=== PATIENT | male | born 1950 | race Caucasian/White ===

== ENCOUNTER → 2023-11-23 08:29 | Outpatient (REF) | payer MEDICARE, OTHER, SELFPAY ==
[2023-11-23 10:37] LABS: ALT (SGPT) 20 U/L (0-50); AST (SGOT) 21 U/L (17-59); Alkaline Phosphatase 102 U/L (38-126); Blood Urea Nitrogen 20 mg/dl (9-20); Calcium 9.6 mg/dl (8.4-10.2); Carbon Dioxide 25 mmol/L (22-30); Chloride 103 mmol/L (98-107); Glucose 154 mg/dl (70-99); HDL Cholesterol 48 mg/dl; LDL Cholesterol, Calculated 65 mg/dl; Potassium 4.6 mmol/L (3.5-5.1); Sodium 138 mmol/L (135-145); Total Bilirubin 0.6 mg/dl (0.2-1.3); Total Cholesterol 138 mg/dl (50-199); Total Protein 6.6 g/dl (6.3-8.2); Triglyceride 125 mg/dl (10-149); Very Low Density Lipoprotein 25 mg/dl (0-30); eGFR > 60.00
[2023-11-23 10:56] LABS: Glycohemoglobin (HgbA1c) 7.4 % (4.0-5.6)
[2023-11-23 12:01] LABS: PSA, Total - Screen 1.78 ng/ml (0.0-4.0)
[2023-11-23 15:16] LABS: Microalbumin, Random Urine 43.2 mg/dl (0.6-1.7); Microalbumin/creatinine Ratio 370.8 mg/g
== END ==
LOC: REG 08:29
PROVIDERS: ATTENDING PHYSICIAN Family Medicine
DX: Z12.5 Encounter for screening for malignant neoplasm of prostate (principal); E11.42 Type 2 diabetes mellitus with diabetic polyneuropathy; E78.2 Mixed hyperlipidemia
CPT/HCPCS: 36415; 80053; 80061; 82043; 82570; 83036; G0103

== ENCOUNTER → 2024-03-14 10:11 | Outpatient (REF) | payer MEDICARE, OTHER, SELFPAY ==
[2024-03-14 10:49] LABS: % Basophils 0.9 % (0-2); % Eosinophils 2.4 % (0-6); % Immature Granulocytes 0.2 % (0-0.5); % Lymphocytes 20.2 % (20.5-51.1); % Monocytes 6.7 % (1.7-9.3); % Neutrophils 69.6 % (42.2-75.2); Absolute Basophils 0.1 10^3/uL (0-0.2); Absolute Eosinophils 0.2 10^3/uL (0-0.7); Absolute Lymphocytes 1.6 10^3/uL (1.2-3.4); Absolute Monocytes 0.5 10^3/uL (0.1-0.6); Absolute Neutrophils 5.6 10^3/uL (1.4-6.5); Hematocrit 49.8 % (39.0-52.0); Hemoglobin 16.2 g/dL (13.0-18.0); Mean Corp Hgb Conc. 32.5 g/dL (33.0-37.0); Mean Corpuscular Hgb 29.6 pg (27.0-31.0); Mean Corpuscular Volume 90.9 fL (80.0-94.0); Mean Platelet Volume 10.6 fL (7.4-10.4); Nucleated Red Blood Cells % 0 % (-); Platelet Count 232 10^3/uL (130-400); Red Blood Cell Count 5.48 10^6/uL (4.70-6.10); Red Cell Dist. Width 13.6 % (11.5-14.5); White Blood Cell Count 8.1 10^3/uL (4.8-10.8)
[2024-03-14 11:19] LABS: ALT (SGPT) 26 U/L (0-50); AST (SGOT) 27 U/L (17-59); Albumin 4.4 g/dl (3.5-5.0); Alkaline Phosphatase 87 U/L (38-126); Blood Urea Nitrogen 17 mg/dl (9-20); Calcium 9.9 mg/dl (8.4-10.2); Carbon Dioxide 25 mmol/L (22-30); Chloride 102 mmol/L (98-107); Creatine Phosphokinase 52 U/L (55-170); Glucose 154 mg/dl (70-99); Potassium 4.7 mmol/L (3.5-5.1); Sodium 140 mmol/L (135-145); Total Bilirubin 0.5 mg/dl (0.2-1.3); Total Protein 7.3 g/dl (6.3-8.2); eGFR > 60.00
[2024-03-14 12:46] LABS: Erythrocyte Sed Rate 15 mm/hour (0-20)
== END ==
LOC: RAD 10:11
PROVIDERS: ATTENDING PHYSICIAN Family Medicine
DX: R06.09 Other forms of dyspnea (principal); M79.10 Myalgia, unspecified site
CPT/HCPCS: 36415; 71046; 80053; 82550; 85025; 85652; 86140

== ENCOUNTER → 2024-03-18 10:58 | Outpatient (REF) | payer MEDICARE, OTHER, SELFPAY | LOC: RAD 10:58 | PROVIDERS: ATTENDING PHYSICIAN Family Medicine | DX: M79.605 Pain in left leg (principal); M79.604 Pain in right leg; R60.0 Localized edema | CPT/HCPCS: 93970 ==

== ENCOUNTER → 2024-05-16 07:13 | Outpatient (REF) | payer MEDICARE, OTHER, SELFPAY ==
--- NOTE | 2024-05-16 08:16 | CARDSERVLU ---
Echocardiogram with Lumason completed after protocol screening completed. Allergies verified.
Patent IV site: ___Rt hand_
IV site flushed with 0.9% NaCl pre and post administration.
Diluted bolus method utilized to enhance visualization of ventricular peterson.
Total volume given: __3.5__ mL
Patient tolerated all procedures well without complications.
#22 betty placed rt hand. Lumason given. INT d/c'd. pressure held. No bleeding noted.
== END ==
LOC: RCS 07:13
PROVIDERS: ATTENDING PHYSICIAN Nuclear Medicine Nuclear Cardiology; FAMILY PHYSICIAN Family Medicine
DX: Z95.1 Presence of aortocoronary bypass graft (principal); I25.10 Atherosclerotic heart disease of native coronary artery without angina pectoris
CPT/HCPCS: 93306; Q9950

== ENCOUNTER 2024-07-20 06:13 | Day surgery (SDC) | payer MEDICARE, OTHER, SELFPAY ==
[2024-07-20 07:16] VITALS: BMI 50.9
[2024-07-20 07:25] VITALS: BP 160/62
[2024-07-20 07:37] VITALS: BMI 50.9
[2024-07-20 07:37] LABS: Glucose - Point of Care 129 mg/dl (70-99)
[2024-07-20] MEDS: CYCLOGYL 1% EYE DROPS 1 DROP OPHTH (07:44)
[2024-07-20] MEDS: PRED FORTE 1% EYE DROPS 1 DROP OPHTH (07:44)
[2024-07-20] MEDS: ALCAINE 0.5% EYE DROPS 1 DROP OPHTH (07:44)
[2024-07-20] MEDS: POLYTRIM OPHTHALMIC SOLUTION 1 DROP OPHTH (07:44)
[2024-07-20] MEDS: NEO-SYNEPHRINE 2.5% OPH SOL. 1 DROP OPHTH (07:45)
[2024-07-20] MEDS: ACUVAIL 10 DROPS OPHTH (07:45)
[2024-07-20] MEDS: MYDRIACYL 1 DROP OPHTH (07:45)
[2024-07-20] MEDS: NORMOSOL-R/PLASMALYTE-A 1000 IV (07:46)
[2024-07-20] MEDS: AKTEN OPHTHALMIC GEL 1 ML OPHTH (07:46)
[2024-07-20 09:17] VITALS: BP 144/73
== END 2024-07-20 14:57 | disposition home or self-care (01) ==
LOC: SDS 06:13
PROVIDERS: ATTENDING PHYSICIAN Ophthalmology
DX: H25.12 Age-related nuclear cataract, left eye (principal)
CPT/HCPCS: 66984; 82962; V2632

== ENCOUNTER 2024-08-03 06:23 | Day surgery (SDC) | payer MEDICARE, OTHER, SELFPAY ==
[2024-08-03 07:01] VITALS: BP 174/76
[2024-08-03 07:09] LABS: Glucose - Point of Care 143 mg/dl (70-99)
[2024-08-03 07:14] VITALS: BMI 50.9
[2024-08-03] MEDS: POLYTRIM OPHTHALMIC SOLUTION 1 DROP OPHTH (07:15)
[2024-08-03] MEDS: ALCAINE 0.5% EYE DROPS 1 DROP OPHTH (07:15)
[2024-08-03] MEDS: PRED FORTE 1% EYE DROPS 1 DROP OPHTH (07:15)
[2024-08-03] MEDS: AKTEN OPHTHALMIC GEL 1 ML OPHTH (07:16)
[2024-08-03] MEDS: ACUVAIL 10 DROPS OPHTH (07:16)
[2024-08-03] MEDS: MYDRIACYL 1 DROP OPHTH (07:16)
[2024-08-03] MEDS: NEO-SYNEPHRINE 2.5% OPH SOL. 1 DROP OPHTH (07:16)
[2024-08-03] MEDS: CYCLOGYL 1% EYE DROPS 1 DROP OPHTH (07:16)
[2024-08-03 08:30] VITALS: BP 140/53
== END 2024-08-03 08:50 | disposition home or self-care (01) ==
LOC: SDS 06:23
PROVIDERS: ATTENDING PHYSICIAN Ophthalmology
DX: H25.11 Age-related nuclear cataract, right eye (principal)
CPT/HCPCS: 66984; 82962; V2632

== ENCOUNTER → 2024-12-07 10:34 | Outpatient (REF) | payer MEDICARE, OTHER, SELFPAY ==
[2024-12-07 11:57] LABS: Glycohemoglobin (HgbA1c) 7.6 % (4.0-5.6)
[2024-12-07 12:18] LABS: ALT (SGPT) 17 U/L (0-50); AST (SGOT) 20 U/L (17-59); Albumin 4.4 g/dl (3.5-5.0); Alkaline Phosphatase 108 U/L (38-126); Blood Urea Nitrogen 20 mg/dl (9-20); Calcium 9.9 mg/dl (8.4-10.2); Carbon Dioxide 23 mmol/L (22-30); Chloride 106 mmol/L (98-107); Glucose 171 mg/dl (70-99); HDL Cholesterol 46 mg/dl; LDL Cholesterol, Calculated 61 mg/dl; Potassium 4.8 mmol/L (3.5-5.1); Sodium 138 mmol/L (135-145); Total Protein 7.5 g/dl (6.3-8.2); Very Low Density Lipoprotein 27 mg/dl (0-30); eGFR > 60.00
[2024-12-07 13:41] LABS: Microalb - Urine Creatinine 120.800 mg/dl
[2024-12-07 13:46] LABS: Microalbumin, Random Urine 18.8 mg/dl (0.6-1.7)
== END ==
LOC: REG 10:34
PROVIDERS: ATTENDING PHYSICIAN Family Medicine
DX: E11.21 Type 2 diabetes mellitus with diabetic nephropathy (principal); E78.2 Mixed hyperlipidemia
CPT/HCPCS: 36415; 80053; 80061; 82043; 82570; 83036

== ENCOUNTER → 2025-03-13 08:21 | Outpatient (REF) | payer MEDICARE, OTHER, SELFPAY ==
[2025-03-13 10:45] LABS: ALT (SGPT) 23 U/L (0-50); AST (SGOT) 23 U/L (17-59); Albumin 4.5 g/dl (3.5-5.0); Alkaline Phosphatase 103 U/L (38-126); Blood Urea Nitrogen 16 mg/dl (9-20); Calcium 9.7 mg/dl (8.4-10.2); Carbon Dioxide 25 mmol/L (22-30); Chloride 103 mmol/L (98-107); Glucose 198 mg/dl (70-99); Glycohemoglobin (HgbA1c) 8.6 % (4.0-5.9); Potassium 4.6 mmol/L (3.5-5.1); Sodium 136 mmol/L (135-145); Total Protein 7.8 g/dl (6.3-8.2); eGFR > 60.00
== END ==
LOC: REG 08:21
PROVIDERS: ATTENDING PHYSICIAN Internal Medicine Cardiovascular Disease; FAMILY PHYSICIAN Family Medicine
DX: E11.21 Type 2 diabetes mellitus with diabetic nephropathy (principal); I48.0 Paroxysmal atrial fibrillation
CPT/HCPCS: 36415; 80053; 83036; 84439; 84443

== ENCOUNTER 2025-04-18 13:50 | Emergency (ER) | payer MEDICARE, OTHER, SELFPAY ==
[2025-04-18 14:00] VITALS: BP 171/88
--- NOTE | 2025-04-18 19:20 | ED.GENMED ---
History of Present Illness
General
Chief Complaint: Fall
Source: patient
Exam Limitations: none
Time Seen by Provider: 04/18/25 15:58
Nursing documentation reviewed up to this point in time: agreed with
History of Present Illness
History of Present Illness:
Patient is a 75-year-old male with history atrial fibrillation on Xarelto, CAD, hypertension with pacemaker who presents to the emergency department after mechanical fall. Patient states he slipped at the bottom of his driveway falling backwards
and striking his head. Patient states that when he was attempting to get up he then slipped and fell forward striking his face on the ice. He denies any LOC. 911 was contacted for assistance up and transportation to the emergency department given
anticoagulation.
He reports a dull headache as well as pain in his neck, more on the right side. He denies any nausea or episodes of vomiting. No dizziness, lightheadedness, visual changes, or changes in mental status. He denies any pain in his back,
numbness/tingling or weakness in extremities. He denies any pain in his extremities.
Additionally�he does mention that he has had a pain in the left side of his chest which has been intermittent since the fall today. He denies any exertional or pleuritic component to symptoms. No associated shortness of breath. He also reports
somewhat chronic cough over the past month without associated fever.
Past History
Past History
ED Past Medical History: Arrthythmia (Atrial fib/flutter), CAD, HTN, Hypercholesterolemia, NIDDM, Psychiatric (Anxiety, ) and Other (obesity, polyps, djd, Rectal bleeding, Sleep Apnea, Headaches form neck pain. )
ED Past Surgical History: Cardiac (Ablation, CABG, Pacemaker), Orthopedic ( right and L Total Knee 2015, Right and left shoulder surgery, ) and Other (Hernia, )
Social History
Tobacco: Non-smoker
Alcohol: Occasional
Drug: None
Personal: Other (Seperated)
Living: with family
Family History
Family History: Other
Review of Systems
Review of Systems
Allergies reviewed?: Yes
All Other Systems: ROS reviewed and negative except as documented in HPI and ROS
Phy Exam
Physical Exam
Physical Exam:
Vitals: Hypertensive, otherwise vital signs stable. Afebrile
General: Elevated BMI. Appears in no distress
Skin: Warm and dry, no rashes or lesions
Head: Normocephalic, atraumatic
Eyes: Sclera nonicteric. Pupils equal round reactive to light bilaterally. EOMs intact. No nystagmus.
Throat: Protecting airway
Neck: Normal ROM, no cervical spine tenderness. Mild tenderness in right upper trapezius/lateral neck.
Cardiac: Regular rate and rhythm, no murmurs. No reproducible tenderness in left chest wall.
Pulm: Normal respiratory effort. Lungs clear bilaterally
Abdomen: No abdominal tenderness.
Extremities: Bilateral upper and lower extremities atraumatic and nontender with full range of motion
Neuro: AAOx3. CN II-XII grossly intact. Fluid speech. No focal neurologic deficits.
Psychiatric: Normal affect.
Course
Orders/Labs/Results
Orders:
Orders
04/18/25 14:03
CT Cervical Spine W/o Iv Contr Urgent
Comment:
Reason For Exam: fall
CT Head W/o Iv Contrast Urgent
Comment:
Reason For Exam: fall
Vital Signs
Initial and Last Documented VS:
Initial Vital Signs
Temp Pulse Resp BP Pulse Ox
97.8 F 60 16 171/88 96
04/18/25 14:00 04/18/25 14:00 04/18/25 14:00 04/18/25 14:00 04/18/25 14:00
Last Documented Vital Signs
Temp Pulse Resp BP Pulse Ox
97.8 F 60 16 171/88 96
04/18/25 14:00 04/18/25 14:00 04/18/25 14:00 04/18/25 14:00 04/18/25 19:20
MDM/Problems Addressed
Differential Diagnosis Includes:
Not limited to: Contusion, concussion, intracranial bleed, cervical spine fracture, cervical muscle sprain, rib fracture, pneumothorax, etc.
MDM/Problems Addressed:
75 year-old male with head/neck pain after mechanical fall on ice. No LOC.
Vitals stable. On exam, patient well appearing and in no distress. He is alert and oriented without any focal neurologic deficits. Cardio/pulmonary assessment unremarkable. He has no midline spinal or chest wall tenderness.�
Prior to my evaluation a CT head and cervical spine were obtained with no evidence of intracranial bleeding or fracture.�
Impression is mechanical fall, secondary to black ice. No findings of acute injury to head or neck.
However � patient did mention some left sided chest pain since fall, which appears relatively minor without exertional or pleuritic component. Possible chest contusion/rib fracture, however � he does have relatively significant history of coronary
artery disease. Recommended additional testing, including lab work, cardiac enzyme, EKG, imaging of chest however patient declines. He is aware that we could be missing an underlying cardiac diagnosis or traumatic injury to chest.�
Will discharge with very strict return precautions. Advised patient followed with primary care and cardiology. Patient expressed verbal understanding.
Chronic conditions affecting care:
Atrial fibrillation on Xarelto, CAD, hypertension, pacemaker
Acute Exacerbation and/or Progression of Chronic Illness:
N/A
*Pulse Oximetry
SaO2: 96
Oxygen Mode of Delivery: Room air
Patient hypoxic: no
*EKG
Interpreted by ED Provider?: NA
*Map Colorer Interpretation
Rate: Map Colorer- N/A
*Critical Care Note
Total Time (30-74mins, 75-104mins- exclusive of procedures): Not Applicable
ED Attending Note
-
Portions of this chart may have been created with voice recognition software.� Occasional wrong word or��sound alike� substitutions may have occurred due to the inherent limitations of voice recognition software.
Discharge Plan
Departure
Patient Disposition: Home (Routine Discharge)
Date of Disposition: 04/18/25
Time of Disposition: 16:56
Patient with high blood pressure during this ER visit?: Yes
Condition: Good
Discharge Problem:
Fall, Head injury, Neck pain
Instructions: Concussion, Adult (DC), Head Injury in Adults (DC), BLOOD PRESSURE
Prescriptions:
No Action
escitalopram oxalate 20 MG tablet
20 mg PO DAILY 0RF
atorvastatin 40 MG tablet
40 mg PO DAILY
gabapentin 300 MG capsule
300 mg PO BID
metformin 500 MG tablet extended release 24 hr
500 mg PO BID
Xarelto 20 MG tablet
20 mg PO DAILY
aspirin 81 MG tablet,delayed release (DR/EC)
81 mg PO DAILY
metoprolol succinate 25 MG tablet extended release 24 hr
25 mg PO DAILY
losartan 25 mg Tablet
25 mg PO DAILY
prednisolone acetate (PF) 1 % Drops,Suspension
1 drp BOTH EYES BID
Referrals:
Tramaine Mejia MD [Family Provider, [facility]] - Follow up in 5-7 days
Activity Restrictions/Additional Instructions:
RETURN TO THE EMERGENCY DEPARTMENT WITH ANY SEVERE HEADACHE OR NECK PAIN, INTRACTABLE VOMITING, VISUAL CHANGES OR CHANGES IN MENTAL STATUS, PERSISTENT DIZZINESS, INABILITY TO AMBULATE, CHEST PAIN/SHORTNESS OF BREATH, WORSENING CURRENT SYMPTOMS, OR
ANY OTHER CONCERNS
- As discussed, the CT imaging of your head showed no evidence of bleeding. There was no evidence of a neck fracture. You likely sustained a minor concussion and a Strain of your neck muscles. Please continue to take Tylenol and apply lidocaine
patches as needed for discomfort. It is important stay well-hydrated and get plenty of rest.
- You declined any further imaging of your chest, shoulder as well as lab work/EKG. Please monitor your symptoms very closely and follow-up with cardiology for continued management.
- Continue to take all of your medications as prescribed.
Monitor your symptoms closely and return to the emergency department with any acute worsening/new symptoms or any other concerns
Interventions
Interventions:
*General Assessment Last Done: 12/30/25 14:00
*Neglect/Abuse Screening Last Done: 04/18/25 14:00
*ED COVID-19 Vaccine History Last Done: 04/18/25 14:00
*ED Influenza Vaccine History Last Done: 04/18/25 14:00
*Risk Screen - Suicide (C-SSRS) Last Done: 04/18/25 14:00
*Nursing Disposition Last Done: 04/18/25 17:03
ED- Neurological Assessment Last Done: 04/18/25 17:02
Discharge Date and Time
Discharge Date/Time: 04/18/25 17:08
Print Language: HEBREW
== END 2025-04-18 17:08 | disposition home or self-care (01) ==
LOC: EMR 13:50
PROVIDERS: EMERGENCY PHYSICIAN Emergency Medicine; FAMILY PHYSICIAN Family Medicine; REFERRING PHYSICIAN Internal Medicine Cardiovascular Disease
DX: S09.90XA Unspecified injury of head, initial encounter (principal); M54.2 Cervicalgia; W00.0XXA Fall on same level due to ice and snow, initial encounter; E11.9 Type 2 diabetes mellitus without complications; I25.810 Atherosclerosis of coronary artery bypass graft(s) without angina pectoris; I48.91 Unspecified atrial fibrillation; I10 Essential (primary) hypertension; E78.00 Pure hypercholesterolemia, unspecified; G47.30 Sleep apnea, unspecified; F41.9 Anxiety disorder, unspecified; Z79.01 Long term (current) use of anticoagulants; Z79.82 Long term (current) use of aspirin; Z79.84 Long term (current) use of oral hypoglycemic drugs; Z95.0 Presence of cardiac pacemaker; Z95.1 Presence of aortocoronary bypass graft; Z96.653 Presence of artificial knee joint, bilateral
CPT/HCPCS: 99284; 70450; 72125